=== PATIENT | female | born 1965 | race Caucasian/White ===

== ENCOUNTER 2016-11-13 11:46 | Emergency (ER) | payer MEDICAID, OTHER ==
[~2016-11-13] VITALS: Ht 162.6 cm; Wt 129.7 kg
[2016-11-13 11:58] VITALS: BP 127/53
[2016-11-13] MEDS ORDERED: KETOROLAC TROMETH 60MG/2ML VIAL IM ONE (12:45)
== END 2016-11-13 12:57 | disposition home or self-care (01) ==
LOC: ER 11:54
DX: G89.29 Other chronic pain (principal); M54.5 Low back pain
CPT/HCPCS: 96372; 99283; J1885

== ENCOUNTER 2025-05-04 04:26 | Emergency (ER) | payer MEDICAID ==
[~2025-05-04] VITALS: Ht 162.6 cm; Wt 127.3 kg
--- NOTE | 2025-05-04 05:07 | ED.PDOC ---
History of Present Illness HPI Comments 59-year-old female who came to ER for high blood pressure. Patient has a history of hypertension, but has been off her losartan for the past week. Past few days, noted elevation of blood pressure, SBP>200. Patient able to resume her Losartan yesterday but blood pressure remained elevated. Few hours ago, patient woke up with bilateral ear ringing. She felt dizzy and unbalanced. She denies any headaches or chest pains. Blood pressure upon arrival was 158/93 mm Hg REVIEW OF SYSTEMS: General: No fever, no chills, or fatigue HEENT: No sore throat, no earache, no congestion, no neck pain. (+) bilateral tinnitus Cardiac: No chest pain. No palpitations. Lungs: No shortness of breath, no cough. GI: No nausea, no vomiting, no diarrhea, no constipation, no abdominal pain : No dysuria, frequency, or urgency. No hematuria. Musculoskeletal: No joint pain , no joint swelling, no extremity edema. Skin: No rash, no itching. Neuro: No headache, (+) dizziness, no weakness, (+) imbalance EXAM: General: Awake, alert and oriented. No acute distress. Skin: Skin in warm, dry and intact. Appropriate color for ethnicity. HEENT: The head is normocephalic and atraumatic. Conjunctivae are clear without exudates or hemorrhage. Sclera is non-icteric. EOM are intact. PERRLA No signs of nystagmus. Eyelids are normal in appearance without swelling or lesions. Oral mucosa is pink and moist Neck: The neck is supple with normal range of motion. No JVD. Cardiac: Heart rate and rhythm are normal. No murmurs, gallops, or rubs are auscultated. Respiratory: No signs of respiratory distress. Lung sounds are clear in all lobes bilaterally without rales, rhonchi, or wheezes. Abdominal: Abdomen is soft, non-tender without distention. Bowel sounds are present and normoactive in all four quadrants. Extremities: Upper and lower extremities are atraumatic in appearance without deformity or edema. Neurological: The patient is awake, alert and oriented to person, place, and time with normal speech. Speech is clear. There is no facial asymmetry. Difficulty balancing on each leg. Unable to perform tandem walk. Normal finger nose test. + Romberg Psychiatric: Appropriate mood and affect. Good judgement and insight Chief Complaint: High Blood Pressure Time Seen by MD: 05:07 Primary Care Provider: ELVA Jones Notes: Nurses Notes Allergies: Coded Allergies: Lisinopril (Verified Allergy, Unknown, 05/04/25) Information Source: Patient, Spouse Mode of Arrival: Ambulatory Past Medical History PAST MEDICAL HISTORY: CHF, Depression, DM, HTN Past Medical History (Other): Lymphedema Surgical History: Denies all surgeries [employer] History: No Pertinent [employer] History Family History Family History: Reviewed,noncontributory to illness Social History Smoker: Non-Smoker Alcohol: Denies ETOH Use Drugs: Denies Drug Use Lives In: Home Was a procedure done? Was a procedure done?: No Differential Dx Considerations may include: Hypertensive urgency, tinnitus, CVA, TIA, medication noncompliance X-Ray, Labs, Meds, VS Vital Signs Date Time Temp Pulse Resp B/P (MAP) Pulse Ox O2 Delivery O2 Flow Rate FiO2 05/04/25 07:34 97.6 59 18 126/69 (88) 96 97.6 05/04/25 05:21 97.5 72 18 127/75 (92) 96 97.5 05/04/25 05:21 72 18 96 Room Air 05/04/25 04:34 98.2 80 18 158/93 96 98.2 Lab Test 05/04/25 05:11 Range/Units White Blood Count 5.2 4.4-10.8 10^3/uL Red Blood Count 5.05 4.0-5.20 10^6/uL Hemoglobin 13.6 12.2-16.2 g/dL Hematocrit 40.9 36.0-46.0 % Mean Corpuscular Volume 81.1 80.0-100.0 fL Mean Corpuscular Hemoglobin 26.9 L 28.0-32.0 pg Mean Corpuscular Hemoglobin Concent 33.1 32.0-36.0 g/dL Red Cell Distribution Width 13.9 11.8-14.3 % Platelet Count 218 140-450 10^3/uL Mean Platelet Volume 8.7 6.9-10.8 fL Neutrophils (%) (Auto) 41.5 37.0-80.0 % Lymphocytes (%) (Auto) 41.4 10.0-50.0 % Monocytes (%) (Auto) 10.9 0.0-12.0 % Eosinophils (%) (Auto) 4.3 0.0-7.0 % Basophils (%) (Auto) 1.9 0.0-2.0 % Neutrophils # (Auto) 2.2 1.6-8.6 10 ^3/uL Lymphocytes # (Auto) 2.2 0.4-5.4 10 ^3/uL Monocytes # (Auto) 0.6 0-1.3 10 ^3/uL Eosinophils # (Auto) 0.2 0-0.8 10 ^3/uL Basophils # (Auto) 0.1 0-0.2 10 ^3/uL Nucleated Red Blood Cells 0.1 % Sodium Level 140 136-145 mmol/L Potassium Level 3.4 L 3.5-5.1 mmol/L Chloride Level 104 98-107 mmol/L Carbon Dioxide Level 28 20-31 mmol/L Anion Gap 8 5-15 Blood Urea Nitrogen 22 9-23 mg/dL Creatinine 1.38 H 0.550-1.02 mg/dL Glomerular Filtration Rate Calc 44 >90 mL/min BUN/Creatinine Ratio 15.9 10.0-20.0 Serum Glucose 83 74-106 mg/dL Calcium Level 9.3 8.7-10.4 mg/dL Magnesium Level 2.0 1.6-2.6 mg/dL Troponin I High Sensitivity 6 </=34 ng/L Current Medications Medications (Trade) Dose Ordered Sig/Cole Route Start Time Stop Time Status Last Admin Meclizine HCl (Antivert Tablet) 50 mg ONCE ONCE PO 05/04/25 05:00 05/04/25 05:01 DC 05/04/25 05:19 [place] [id number] Ph: [phone] DIAGNOSTIC IMAGING Diagnostic Imaging Report : [id number] Signed PATIENT: BRITTANY CODY ACCT: [id number] UNIT: [id number] : 1965 LOC: ER ROOM / BED: / AGE / SEX: 59 / F ADM STATUS: REG ER SERVICE [id number] ORDERING PHYSICIAN: NAVDEEP SHANNON MD PROCEDURE(s): HWOCT - HEAD WITHOUT CONTRAST REASON: vision change, dizziness, vertigo ORDER NUMBER(s): [id number], ACCESSION NUMBER(s): [id number] EXAM: CT HEAD WITHOUT CONTRAST INDICATION: vision change, dizziness, vertigo TECHNIQUE: CT of the head without intravenous contrast. Radiation Dose : 1. Head: CT Dose: CTDI volume is 63.14 mGy. Dose-length product is 1117.9 mGy*cm The dose indicators for CT are the volume Computed Tomography (CT) Dose Index (CTDIvol) and the Dose Length Product (DLP), and are measured in units of mGy and mGy-cm, respectively. These indicators are not patient dose, but values generated from the CT scanner acquisition factors. The report includes radiation exposure data for exposures received during this examination. COMPARISON: CT HEAD WITHOUT CONTRAST on DOS: 01/17/25 FINDINGS: There is no evidence of acute intracranial hemorrhage, extra-axial collection, mass effect, midline shift, herniation or hydrocephalus. The ventricles, sulci and cisterns are age appropriate. The nair-white differentiation is intact. The visualized paranasal sinuses and mastoid air cells are clear. The surrounding soft tissues and osseous structures are unremarkable. IMPRESSION: 1. No acute intracranial abnormality. Radiation optimization: All CT scans at this facility use at least one of these dose optimization techniques: automated exposure control mA and/or kV adjustment per patient size (includes targeted exams where dose is matched to clinical indication) or iterative reconstruction. ATED BY: MICHAEL PORTER MD- I took over patient's care from Dr. Shannon at 6:00 a.m.. I was asked to follow up on CT scan of the brain results. At this time CT scan of the brain is unremarkable. Patient was found to have high blood pressure here and symptoms of vertigo. At this time she is clinically feeling better. I have discharged her home. Advised her to follow up with the PCP in 2-3 days and return to the ER if symptoms worsen or persist. Patient agreeable to the plan. Time of 1ST Reevaluation: 05:03 Reevaluation 1ST: Unchanged Time of 2ND Reevaluation: 06:32 Reevaluation 2ND: Improved (By Dr. Alvarado) Patient Education/Counseling: Need For Follow Up Family Education/Counseling: Need For Follow Up Change of Shift?: Yes (Sign out to Dr. Alvarado @0600 pending lab and imaging results.) SEPSIS Sepsis Screen Date sepsis recognized/suspect: May 04, 2025 Time Sepsis recognized/suspect: 043 Recent Procedure: No On Antibiotic Therapy: No Respiratory Rate >20: No Heart Rate >90: No Temp<36 C (96.8 F) or >38.3 C: No SBP <90 or MAP <65 mmHG: No New Acute Mental Status Change: No Is the patient on CPAP, BIPAP,: No Physician Orders Head Without Contrast (05/04/25 04:52) Electrocardigram (05/04/25 04:52) Vital Signs Date Time Temp Pulse Resp B/P (MAP) Pulse Ox O2 Delivery O2 Flow Rate FiO2 05/04/25 07:34 97.6 59 18 126/69 (88) 96 97.6 05/04/25 05:21 97.5 72 18 127/75 (92) 96 97.5 05/04/25 05:21 72 18 96 Room Air 05/04/25 04:34 98.2 80 18 158/93 96 98.2 Laboratory Tests Test 05/04/25 05:11 White Blood Count 5.2 10^3/uL (4.4-10.8) Departure 1 Departure Time of Disposition: 06:32 Impression: Primary Impression: Hypertensive urgency Disposition: 01 HOME / SELF CARE / HOMELESS Condition: Fair Additional Instructions: Follow up with the primary care physician in 2-3 days and return to the ER if symptoms worsen or persist. Discharged With: Self Comments Critical Care Note Critical Care Time?: No Stability Stability form required: No Heart Score Heart Score: Heart Score Response (Comments) Value History N/A 0 EKG N/A 0 Age N/A 0 Risk Factors N/A 0 Troponin N/A 0 Total 0 I personally scribed for NAVDEEP SHANNON MD ([email or web address]) on 05/04/25 at 05:07. Electronically submitted by Jose Klein ([facility]). NAVDEEP SHANNON MD May 04, 2025 05:07 MINDY ALVARADO MD May 04, 2025 06:35
[2025-05-04] MEDS: MECLIZINE HCL 25 MG TAB PO ONE (05:19)
[2025-05-04 05:27] LABS: Nucleated Red Blood Cells % 0.1 %
[2025-05-04 05:28] LABS: Hematocrit 40.9 % (36.0-46.0); Hemoglobin 13.6 g/dL (12.2-16.2); Mean Corpuscular Hemoglobin 26.9 pg (28.0-32.0); Mean Corpuscular Volume 81.1 fL (80.0-100.0)
[2025-05-04 05:36] LABS: Anion Gap 8 (5-15); Carbon Dioxide 28 mmol/L (20-31); Chloride 104 mmol/L (98-107); Sodium 140 mmol/L (136-145)
[2025-05-04 05:37] LABS: Calcium 9.3 mg/dL (8.7-10.4)
[2025-05-04 05:42] LABS: BUN/Creatinine Ratio 15.9 (10.0-20.0); Blood Urea Nitrogen 22 mg/dL (9-23); Glucose 83 mg/dL (74-106); Magnesium 2.0 mg/dL (1.6-2.6)
[2025-05-04 05:52] LABS: Potassium 3.4 mmol/L (3.5-5.1)
--- NOTE | 2025-05-04 06:07 | DVH ---
EXAM: CT HEAD WITHOUT CONTRAST INDICATION: vision change, dizziness, vertigo TECHNIQUE: CT of the head without intravenous contrast. Radiation Dose : 1. Head: CT Dose: CTDI volume is 63.14 mGy. Dose-length product is 1117.9 mGy*cm The dose indicators for CT are the volume Computed Tomography (CT) Dose Index (CTDIvol) and the Dose Length Product (DLP), and are measured in units of mGy and mGy-cm, respectively. These indicators are not patient dose, but values generated from the CT scanner acquisition factors. The report includes radiation exposure data for exposures received during this examination. COMPARISON: CT HEAD WITHOUT CONTRAST on DOS: 01/17/25 FINDINGS: There is no evidence of acute intracranial hemorrhage, extra-axial collection, mass effect, midline s hift, herniation or hydrocephalus. The ventricles, sulci and cisterns are age appropriate. The nair-white differentiation is intact. The visualized paranasal sinuses and mastoid air cells are clear. The surrounding soft tissues and osseous structures are unremarkable. IMPRESSION: 1. No acute intracranial abnormality. Radiation optimization: All CT scans at this facility use at least one of these dose optimization raeann hniques: automated exposure control mA and/or kV adjustment per patient size (includes targeted exam s where dose is matched to clinical indication) or iterative reconstruction.
[2025-05-04 07:34] VITALS: BP 126/69; PULSE 59; RESP 18; TEMP 97.6; O2SAT 96
== END 2025-05-04 07:39 | disposition home or self-care (01) ==
LOC: ER 04:26
DX: I16.0 Hypertensive urgency (principal); I50.9 Heart failure, unspecified; E11.9 Type 2 diabetes mellitus without complications; R42 Dizziness and giddiness; Z88.8 Allergy status to other drugs, medicaments and biological substances
CPT/HCPCS: 36415; 70450; 80048; 83735; 84484; 85025; 99284; J8597